=== PATIENT | male | born 1990 | race Hispanic/Latino ===

== ENCOUNTER 2021-06-23 17:41 | Emergency (ER) | payer OTHER ==
[~2021-06-23] VITALS: Ht 172.7 cm; Wt 145.1 kg
[2021-06-23 17:46] VITALS: BP 154/96
== END 2021-06-23 19:03 | disposition home or self-care (01) ==
LOC: EDH 17:41
DX: T18.9XXA Foreign body of alimentary tract, part unspecified, initial encounter (principal); F31.9 Bipolar disorder, unspecified; F41.9 Anxiety disorder, unspecified; X58.XXXA Exposure to other specified factors, initial encounter; Y93.89 Activity, other specified; Y92.89 Other specified places as the place of occurrence of the external cause; Y99.8 Other external cause status
CPT/HCPCS: 71045; 74018